=== PATIENT | male | born 1980 | race Caucasian/White ===

== ENCOUNTER 2019-12-26 06:01 | Day surgery (SDC) | payer BC ==
[~2019-12-26] VITALS: Ht 177.8 cm; Wt 63.6 kg
--- NOTE | 2019-12-26 06:53 | NUR ---
Ambulatory in Day Surgery History, Chart, Medications and Allergies reviewed before start of procedure.Patient confirms NPO status and agrees with scheduled surgery. Patient reports completing Chlorhexadine shower X2 prior to admission to hospital.Surgical site prepped with 2% Chlorhexidine cloth wipe. Lungs clear T/O to Auscultation. Patient States Post-Procedure ride home has been arranged WITH
--- NOTE | 2019-12-26 08:34 | NUR ---
arrived from [facility] drssing cdi r chest wall awake oriented vss given coffee
--- NOTE | 2019-12-26 09:02 | NUR ---
Discharge instructions reviewed with patient. Patient verbalizes understanding. Copy given to patient to take home. Patient States Post-Procedure ride home has been arranged. Discharged via wheelchair to private car for ride home.
--- NOTE | 2019-12-27 16:32 | NUR ---
12/27/19 1632 Papst,Dayne ARRIOLA CARTED FOR VERIFICATION AFTER CONFIRMATION WITH GRABIEL SMYTH BY PHONE
== END 2019-12-26 22:38 | disposition home or self-care (01) ==
LOC: ORSCMMR 06:01 → ORD 07:30 → ORSCMMR 22:38
PROVIDERS: Surgery
PROC: 0JH60WZ Insertion of Totally Implantable Vascular Access Device into Chest Subcutaneous Tissue and Fascia, Open Approach (ICD-10-PCS; principal; 2019-12-26 07:30)
DX: C81.90 Hodgkin lymphoma, unspecified, unspecified site (principal); Z87.891 Personal history of nicotine dependence
CPT/HCPCS: 77001; C1788; J0690; J1100; J1642; J2250; J2405; J2704; J3010; J7120